=== PATIENT | male | born 1945 | race Caucasian/White ===

== ENCOUNTER 2023-03-11 21:04 | Emergency (ER) | payer OTHER ==
[~2023-03-11] VITALS: Ht 190.5 cm; Wt 111.6 kg
[2023-03-11] MEDS ORDERED: ZOCOR40 MG PO (21:25)
[2023-03-11] MEDS ORDERED: ZOLOFT50 MG PO (21:25)
[2023-03-11] MEDS ORDERED: CEPHALEXIN500 M1 PO (21:40)
== END 2023-03-11 21:56 | disposition home or self-care (01) ==
LOC: ED 21:04
DX: S01.81XA Laceration without foreign body of other part of head, initial encounter (principal); E78.5 Hyperlipidemia, unspecified; F41.9 Anxiety disorder, unspecified; Z88.0 Allergy status to penicillin; Z91.018 Allergy to other foods; W20.8XXA Other cause of strike by thrown, projected or falling object, initial encounter; Y93.89 Activity, other specified; Y92.89 Other specified places as the place of occurrence of the external cause; Y99.0 Civilian activity done for income or pay